=== PATIENT | female | born 2000 ===

== ENCOUNTER 2023-04-02 12:29 | Emergency (ER) | payer OTHER, SELFPAY ==
--- NOTE | 2023-04-02 14:08 | ED.GENMED ---
History of Present Illness
General
Chief Complaint: Cold/Flu/URI Symptoms
Time Seen by Provider: 04/02/23 13:39
Travel History
Have you had any contact with someone who has COVID-19?: No
Do you have any symptoms of coronavirus? Fever > 100 degrees, chills, cough, shortness of breath, sore throat, loss of taste or smell, muscle aches, or headache?: Yes
Symptoms:: all
History of Present Illness
History of Present Illness:
22-year-old female with no past medical history presents the emergency department for evaluation of nausea, vomiting, fevers, myalgias, and malaise over the past 24 to 48 hours. Her fianc� has influenza and is currently improving. She was seen in
urgent care earlier today and had a negative flu test as well as a negative urinalysis. Has not been able to tolerate any p.o. food or fluids today.
Review of Systems
Review of Systems
Allergies reviewed?: Yes
All Other Systems: ROS reviewed and negative except as documented in HPI and ROS
Phy Exam
Physical Exam
Physical Exam:
GEN: Ill-appearing, curled up in the position
HEENT: Oral mucosa moist, no scleral icterus
Cardiac: Mildly tachycardic, regular
Lung: No respiratory distress, no tachypnea, lungs clear to auscultation
Abdomen: Soft, nontender
MSK: No gross deformity or injuries
Skin: Good color, no pallor or jaundice, no rashes
Neuro: AO x3, moves all extremities freely
Psych: Calm, cooperative
Course
Orders/Labs/Results
Orders:
Orders
04/02/23 13:34
Influenza A+B Rapid Molecular Urgent
JERED Source: Nasal Swab
Specimen Description:
04/02/23 13:52
0.9% Sodium Chloride 500 ml [Nss] 500 ml IV BOLUS
Ketorolac [Toradol] 15 mg IV NOW STA
Ondansetron Injectable [Zofran] 4 mg IV NOW STA
04/02/23 13:53
Test Result ONCE
04/02/23 14:00
Dextrose 5%/0.45%Sodchl 500 ml [D5/0.45%NaCl] 500 ml IV 500 mls/hr
04/02/23 14:57
Complete Blood Count/With Diff Urgent
Comprehensive Metabolic Panel Urgent
HCG, Serum Qualitative Screen Urgent
04/02/23 15:32
Dextrose 5%/0.45%Sodchl 500 ml [D5/0.45%NaCl] 500 ml IV 500 mls/hr
Abnormal Lab Results
04/02/23
14:57
RBC 4.15 L 10^6/uL
(4.20-5.40)
Hct 35.2 L %
(37.0-47.0)
Abs Immat Gran (auto) 0.1 H 10^3/uL
(0-0.05)
Absolute Lymphs (auto) 0.9 L 10^3/uL
(1.2-3.4)
Absolute Monos (auto) 0.7 H 10^3/uL
(0.1-0.6)
Immature Gran % 0.7 H %
(0-0.5)
Lymphocytes % 12.6 L %
(20.5-51.1)
Monocytes % 10.2 H %
(1.7-9.3)
Sodium 130 L mmol/L
(135-145)
04/02/23 14:57
04/02/23 14:57
Vital Signs
Initial and Last Documented VS:
Initial Vital Signs
Temp Pulse Resp Pulse Ox
101.8 F H 103 22 97
04/02/23 12:31 04/02/23 12:31 04/02/23 12:31 04/02/23 12:31
Last Documented Vital Signs
Temp Pulse Resp BP Pulse Ox
99.6 F 84 16 107/54 96
04/02/23 17:39 04/02/23 17:39 04/02/23 17:39 04/02/23 17:39 04/02/23 17:39
MDM/Problems Addressed
MDM/Problems Addressed:
Labs are reassuring, patient dramatically improved after IV fluid resuscitation. Tolerating p.o. fluids at time of discharge. She is influenza negative however symptoms are highly suspicious for viral syndrome. No indication for antibiotics.
Discussed further supportive care
*Critical Care Note
Total Time (30-74mins, 75-104mins- exclusive of procedures): Not Applicable
ED Attending Note
-
Portions of this chart may have been created with voice recognition software.� Occasional wrong word or��sound alike� substitutions may have occurred due to the inherent limitations of voice recognition software.
Discharge Plan
Departure
Patient Disposition: Home (Routine Discharge)
Date of Disposition: 04/02/23
Time of Disposition: 17:18
Patient with high blood pressure during this ER visit?: No
Discharge Problem:
Acute viral syndrome
Instructions: Viral Syndrome (DC)
Prescriptions:
New
ondansetron 4 mg tablet,disintegrating
4 mg PO TIDPRN PRN (Reason: nausea/vomiting) Qty: 10 0RF
Referrals:
Chayito Dao DO [Family Provider] -
Activity Restrictions/Additional Instructions:
Please increase fluid intake at home
Return if symptoms last longer than 5 days
Interventions
Interventions:
*Risk Screen - Suicide Last Done: 04/02/23 12:31
*General Assessment Last Done: 04/02/23 12:31
*Neglect/Abuse Screening Last Done: 04/02/23 12:31
ED- Fall Risk Assessment Last Done: 04/02/23 15:20
*ED COVID-19 Vaccine History Last Done: 04/02/23 12:31
*Nursing Disposition Last Done: 04/02/23 17:50
ED- Pulmonary Assessment Last Done: 04/02/23 15:20
Discharge Date and Time
Discharge Date/Time: 04/02/23 17:50
--- NOTE | 2023-04-02 14:24 | EDRN ---
Pt changing into a gown at this time.
[2023-04-02 15:04] LABS: % Eosinophils 2.2 % (0-6); % Immature Granulocytes 0.7 % (0-0.5); % Lymphocytes 12.6 % (20.5-51.1); % Monocytes 10.2 % (1.7-9.3); % Neutrophils 73.3 % (42.2-75.2); Absolute Basophils 0.1 10^3/uL (0-0.2); Absolute Eosinophils 0.2 10^3/uL (0-0.7); Absolute Immature Granulocytes 0.1 10^3/uL (0-0.05); Absolute Lymphocytes 0.9 10^3/uL (1.2-3.4); Absolute Monocytes 0.7 10^3/uL (0.1-0.6); Absolute Neutrophils 5.1 10^3/uL (1.4-6.5); Hematocrit 35.2 % (37.0-47.0); Hemoglobin 12.6 g/dL (12.0-16.0); Mean Corp Hgb Conc. 35.8 g/dL (33.0-37.0); Mean Corpuscular Hgb 30.4 pg (27.0-31.0); Mean Corpuscular Volume 84.8 fL (81.0-99.0); Mean Platelet Volume 10.1 fL (7.4-10.4); Nucleated Red Blood Cells % 0 %; Platelet Count 201 10^3/uL (130-400); Red Blood Cell Count 4.15 10^6/uL (4.20-5.40); Red Cell Dist. Width 13.2 % (11.5-14.5); White Blood Cell Count 6.9 10^3/uL (4.8-10.8)
[2023-04-02 15:26] LABS: HCG, Serum Qualitative Screen Negative
[2023-04-02 15:29] LABS: ALT (SGPT) 14 U/L (0-35); AST (SGOT) 24 U/L (14-36); Albumin 4.1 g/dl (3.5-5.0); Alkaline Phosphatase 63 U/L (38-126); Blood Urea Nitrogen 10 mg/dl (7-17); Calcium 8.8 mg/dl (8.4-10.2); Carbon Dioxide 22 mmol/L (22-30); Chloride 104 mmol/L (98-107); Glucose 93 mg/dl (70-99); Potassium 3.7 mmol/L (3.5-5.1); Sodium 130 mmol/L (135-145); Total Bilirubin 0.7 mg/dl (0.2-1.3); Total Protein 6.9 g/dl (6.3-8.2); eGFR > 60.00
[2023-04-02] MEDS: NSS 500 IV (15:29)
[2023-04-02] MEDS: ZOFRAN 4 MG IV (15:29)
[2023-04-02] MEDS: TORADOL 15 MG IV (15:29)
[2023-04-02 15:35] VITALS: BMI 36.4
[2023-04-02 15:37] VITALS: BP 120/56
[2023-04-02 16:37] VITALS: BP 120/56
[2023-04-02] MEDS: D5/0.45%NACL 500 IV (16:44)
[2023-04-02 17:39] VITALS: BP 107/54
== END 2023-04-02 17:50 | disposition home or self-care (01) ==
LOC: EMR 12:29
PROVIDERS: EMERGENCY PHYSICIAN Emergency Medicine; FAMILY PHYSICIAN Family Medicine
DX: B34.9 Viral infection, unspecified (principal)
CPT/HCPCS: 99284; 96374; 96375; 96361 ×2; 80053; 84703; 85025; 87502

== ENCOUNTER 2023-06-27 06:20 | Day surgery (SDC) | payer OTHER, SELFPAY ==
[2023-06-27] VITALS (10 sets, daily range): BP systolic 106–136; BP diastolic 61–88; BMI 34.9
[2023-06-27] MEDS: CELEBREX 200 MG PO (07:30)
[2023-06-27] MEDS: TYLENOL 1000 MG PO (07:31)
[2023-06-27 07:53] LABS: HCG, Urine Qualitative Screen Negative
[2023-06-27] MEDS: NORMOSOL-R 1000 IV (07:53)
[2023-06-27] MEDS: DILAUDID 0.25 MG IV ×2 (10:29→10:42)
== END 2023-06-27 13:00 | disposition home or self-care (01) ==
LOC: SDS 06:20
PROVIDERS: ATTENDING PHYSICIAN Orthopaedic Surgery Hand Surgery
DX: S43.431A Superior glenoid labrum lesion of right shoulder, initial encounter (principal); X58.XXXA Exposure to other specified factors, initial encounter; M75.41 Impingement syndrome of right shoulder
CPT/HCPCS: 29807; C1713; 81025